=== PATIENT | male | born 1955 | race Caucasian/White ===

== ENCOUNTER 2019-01-02 17:50 | Observation (INO) ==
--- NOTE | 2019-01-02 18:22 | Emergency Department Note ---
Disposition Clinical Impression: Acute renal failure (ARF) Qualifiers: Acute renal failure type: unspecified Qualified Code(s): N17.9 - Acute kidney failure, unspecified Disposition: Admitted As Inpatient Condition: Fair Time of Disposition: 23:06 General Adult HPI - General Chief complaint: ED Dizziness Stated complaint: dizziness Time Seen by Provider: 01/02/19 18:05 Source: patient, EMS Limitations: no limitations Nursing Notes Reviewed: Yes Vital Signs Reviewed: Yes - History of Present Illness HPI Narrative: Presents by EMS and I did see the patient upon arrival and he was working outside in the very hot at a [employer] since 9:30 this morning and became lightheaded and felt like his heart was pounding. No numbness or weakness of the extremities, slurred speech, facial droop or confusion. No syncope. No chest pain or discomfort in the chest. No shortness of breath. He was having some sweating but not a profuse amount. Social history: Smoker, drinks 4 or 5 beers per day. Pain Scale: 0 - Related Data Home Medications Medication Instructions Recorded Confirmed Ibuprofen [Ibu-200] 400 mg PO Q6H PRN 01/02/19 01/02/19 Allergies Allergy/AdvReac Type Severity Reaction Status Date / Time No Known Allergies Allergy Verified 01/02/19 17:57 All systems ED: reviewed and negative except as stated. Past Medical History - Past Medical History Medical history: Reports: no medical history Psychiatric history: Reports: no psych history - Social History Smoking Status: Current every day smoker Smokeless Tobacco Status: No Alcohol use: Reports: occasionally Drug use: Reports: none Physical Exam CONSTITUTIONAL: Alert and oriented X3, well-nourished, well appearing, in no apparent distress HEAD: Normocephalic; atraumatic. EYES: PERRL, no scleral icterus. NOSE: The nose is normal in appearance without rhinorrhea RESP: Normal chest excursion with respiration; breath sounds clear and equal bilaterally; no wheezes, rhonchi, or rales CARD: Regular rhythm, without murmurs, rub or gallop ABD: Non-distended; non-tender, soft,without rigidity, rebound or guarding SKIN: Normal for age and race; warm and dry; no apparent lesions EXTREMITIES: Pulses are 2 plus and equal times 4 extremities, no peripheral edema or calf muscle pain. - General Limitations: no limitations General appearance: alert, in no apparent distress Course Vital Signs Temperature 97.7 F 01/02/19 17:53 Pulse Rate 92 01/02/19 17:53 Respiratory Rate 22 01/02/19 17:53 Blood Pressure 165/105 01/02/19 17:53 O2 Sat by Pulse Oximetry 100 01/02/19 17:53 Temperature 98.0 F 01/02/19 21:19 Pulse Rate 88 01/02/19 21:19 Respiratory Rate 17 01/02/19 21:19 Blood Pressure 178/114 01/02/19 21:19 O2 Sat by Pulse Oximetry 97 01/02/19 21:19 Oxygen Delivery Oxygen Delivery Room Air Medical Decision Making - MDM Narrative Medical decision making narrative: patient will receive 2 L IV flui I do not suspect cardiac disease. I did review an EKG which was done which shows normal sinus rhythm with rate of 94 without acute ischemic change or evidence of arrhythmia. The patient likely had acute effects however he is does not have an elevated temperature at this time and the patient will be watched here. He is bright and alert and nontoxic in appearance. 1822 Patient does have acute renal failure based on his lab results and I did discuss the case with the hospitalist accepts the patient for admission 2305 - Medical Records Medical records reviewed: Yes I reviewed the patient's medical records. - Lab Data Lab results reviewed: Yes I reviewed the patient's lab results. Result diagrams: 01/02/19 18:27 01/02/19 18:27 Lab Results 01/02/19 01/02/19 Range/Units 18:27 18:27 WBC 12.5 H (4.3-11.1) K/mcL RBC 4.84 (4.19-5.50) M/mcL Hgb 16.1 (12.9-16.9) g/dL Hct 46.1 (37.5-50.1) % MCV 95.2 (83.0-100.0) fL MCH 33.3 (28.0-33.3) pg MCHC 34.9 (31.6-35.5) g/dL RDW 13.5 (11.5-14.5) % Plt Count 418 H (140-400) K/mcL MPV 8.6 L (9.4-12.4) fL Sodium 134 L (136-145) mEq/L Potassium 3.6 (3.5-5.1) mEq/L Chloride 98 (98-107) mEq/L Carbon Dioxide 23 (23-29) mEq/L BUN 21 (8-23) mg/dL Creatinine 1.87 H (0.70-1.30) mg/dL Est GFR ( Amer) 45 L (> 60) Est GFR (Non-Af Amer) 37 L (> 60) BUN/Creatinine Ratio 11 (6-26) Glucose 99 (70-105) mg/dL Calculated Osmolality 281 (280-300) Calcium 9.7 (8.6-10.3) mg/dL - Radiology Data Radiology results reviewed: Yes I reviewed the patient's radiology results.
[2019-01-02] MEDS ORDERED: 0.9 % Sodium Chloride 1,000 ML IVC SCH (18:30)
[2019-01-02 18:46] LABS: Hematocrit 46.1 % (37.5-50.1); Hemoglobin 16.1 g/dL (12.9-16.9); Mean Corpuscular HGB Conc 34.9 g/dL (31.6-35.5); Mean Corpuscular Hemoglobin 33.3 pg (28.0-33.3); Mean Corpuscular Volume 95.2 fL (83.0-100.0); Mean Platelet Volume 8.6 fL (9.4-12.4); Platelet Count 418 K/mcL (140-400); Red Blood Count 4.84 M/mcL (4.19-5.50); Red Cell Distribution Width 13.5 % (11.5-14.5); White Blood Count 12.5 K/mcL (4.3-11.1)
[2019-01-02 19:04] LABS: Calcium 9.7 mg/dL (8.6-10.3); Potassium 3.6 mEq/L (3.5-5.1)
[2019-01-02] MEDS ORDERED: Naloxone 0.4 MG/ML INJ IVP PRN (22:11)
[2019-01-02] MEDS: 0.9 % Sodium Chloride 1,000 ML IVC SCH (23:26)
--- NOTE | 2019-01-03 01:12 | Internal Med History&Physical ---
Date of Encounter: 01/02/19 Time of Encounter: 21:55 Internal Medicine - H&P: HPI Chief complaint: near syncope Admitted From: Emergency Dept Plans for Post Hospital Care: Home History of present illness: Mr. Dennis is a 63 year old male who presents to the ER tonight with complaints of feeling lightheaded, dizzy, hot, sweaty, and almost passed out. He was working a [employer] earlier today in the heat and humidity. 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 Some friends and colleagues called EMS, and he was brought to the ER. In the ER, patient was found to have evidence of acute kidney failure and patient was admitted to hospitalist service. Upon my assessment of the patient, he feels much better after having received IV fluids and some food to ingest. He denies any chest pain, palpitations, dyspnea, vomiting, or diarrhea. He admits to having felt lightheaded and dizzy after working in the hot sun and frying fish. He feels that he was dehydrated. He denies any prior cardiac disease, strokes, or kidney problems. Past Med Surg Social Fam HX - Past Medical History Attestation: Yes The following information was validated with the patient. Source: patient, obtained from family Medical history: no medical history Psychiatric history: no psych history - Past Surgical History Surgical History: orthopedic, other Additional surgical history: L shoulder rotator cuff repair, R foot sx - Social History Smoking Status: Current every day smoker Packs per day: half a pack Smokeless Tobacco Status: No Alcohol use: occasionally Drug use: none Current living situation: Home, With Family Activity Level: Independent ambulation Recent Out of Country Travel Within the Last 8 Weeks: No - Family History Mother Living Status: Still Living Hx Family Cardiac Disorders: No Hx Family Genitourinary Disorders: No Father Living Status: Hx Family Cardiac Disorders: Yes Hx Family Genitourinary Disorders: No Internal Medicine - H&P: Meds Ibuprofen [Ibu-200] 400 mg PO Q6H PRN 01/02/19 [History] Allergy/AdvReac Type Severity Reaction Status Date / Time No Known Allergies Allergy Verified 01/02/19 17:57 - Constitutional Constitutional: excessive sweating, no chills, no fever(s), no night sweats - EENT Eyes: no blurry vision, no change in vision Ears: no ear pain, no tinnitus Nose, mouth and throat: no nasal congestion, no sinus pressure, no sore throat - Cardiovascular Cardiovascular ROS IM: lightheadedness, other (+ near syncope), no chest pain, no dyspnea, no dyspnea on exertion, no edema, no palpitations, no paroxysmal nocturnal dyspnea, no syncope - Respiratory Respiratory: no cough, no dyspnea, no hemoptysis, no chest congestion, no excessive phlegm production, no change in phlegm color - Gastrointestinal Gastrointestinal: nausea, no abdominal pain, no diarrhea, no hematemesis, no hematochezia, no melena, no vomiting - Genitourinary Genitourinary ROS male: other (decreased urine output), no dysuria, no flank pain, no hematuria - Musculoskeletal Musculoskeletal ROS IM: no arthralgias, no back pain - Integumentary Integumentary IM: no rash, no jaundice - Neurological Neurological ROS: dizziness, no convulsions, no focal weakness, no frequent falls, no headache(s) - Psychiatric Psychiatric: no anxiety, no depression - Endocrine Endocrine IM: flushing, no polydipsia, no polyphagia, no polyuria - Allergic/Immunologic Allergic/Immunologic: no GI upset with certain foods - Constitutional Vitals: Temp Pulse Resp BP Pulse Ox 97.7 F 72 17 156/84 96 01/03/19 00:28 01/03/19 00:28 01/03/19 00:28 01/03/19 00:01/03/19 00:28 General appearance: Present: cooperative, A&O X 3, pleasant, no acute distress, answers questions appropriately Exam: see below - Head Head exam: Present: atraumatic, normal inspection - Eye Eye exam: Present: EOMI, PERRL. Absent: scleral icterus Pupils: Present: normal accommodation - ENT ENT exam: Present: mucous membranes dry, normal exam, normal oropharynx - Neck Neck exam general surgery: Present: full ROM, supple, trachea midline. Absent: tenderness, nuchal rigidity, thyromegaly - Expanded Neck Exam Neck exam: Absent: carotid bruit - Respiratory Respiratory exam: Present: CTAB. Absent: chest wall tenderness, rales, rhonchi, wheezes, tachypnea - Cardiovascular Cardiovascular exam: Present: RRR, +S1, +S2, tachycardia (HR 100's). Absent: diastolic murmur, systolic murmur - GI/Abdominal GI/Abdominal exam: Present: normal bowel sounds, soft. Absent: guarding, hepatomegaly, mass, rebound, splenomegaly, tenderness - Extremities Exam Extremities exam: Present: full ROM, normal capillary refill, warm, radial pulses palpable and symmetrical. Absent: calf tenderness, joint swelling, pedal edema, tenderness - Back Exam Back exam: Present: normal inspection. Absent: CVA tenderness (L), CVA tenderness (R) - Neurological Exam Neurological exam: Present: alert, CN II-XII intact, oriented X3, no focal deficits, strengths equal and symetr throughout - Psychiatric Psychiatric exam: Present: normal affect, normal mood - Skin Skin exam: Present: dry, intact, warm Internal Med - H&P Results - Labs CBC & Chem 7: 01/02/19 18:27 01/02/19 18:27 Labs: Short CBC 01/02/19 Range/Units 18:27 WBC 12.5 H (4.3-11.1) K/mcL Hgb 16.1 (12.9-16.9) g/dL Hct 46.1 (37.5-50.1) % Plt Count 418 H (140-400) K/mcL BMP 01/02/19 18:27 Sodium 134 L Potassium 3.6 Chloride 98 Carbon Dioxide 23 BUN 21 Creatinine 1.87 H Glucose 99 Calcium 9.7 Cardiac Enzymes 01/02/19 Range/Units 22:25 Troponin I < 0.03 (< 0.04) ng/mL - Assessment and Plan (1) Acute renal failure (ARF) Current Visit: Yes Status: Acute Assessment and plan: 1. Likely due to dehydration and heat exhaustion. 2. Continue IVF hydration and oral hydration. 3. Avoid NSAIDS and nephrotoxic drugs. 4. Monitor renal function. 5. Consult nephrology if fails to improve. Qualifiers: Acute renal failure type: unspecified Qualified Code(s): N17.9 - Acute kidney failure, unspecified (2) Near syncope Current Visit: Yes Status: Acute Assessment and plan: 1. Will trend troponins and EKG's. 2. Likely due to dehydration. 3. ECHO and carotid Dopplers ordered. (3) DVT prophylaxis Current Visit: Yes Status: Acute Assessment and plan: 1. Heparin SQ.
[2019-01-03] MEDS: 0.9 % Sodium Chloride 1,000 ML IVC SCH (04:29)
[2019-01-03] MEDS: *HR* Heparin 5,000 UNIT/ML VIAL SQ SCH ×2 (04:53→17:17)
[2019-01-03 07:21] LABS: Basophils # 0.1 K/mcL (0.0-0.2); Basophils % 1.3 %; Eosinophils # 0.3 K/mcL (0.0-0.6); Hematocrit 41.3 % (37.5-50.1); Immature Granulocytes % 0.3 % (0-4); Lymphocytes # 1.8 K/mcL (0.6-4.6); Lymphocytes % 22.2 %; Mean Corpuscular HGB Conc 34.1 g/dL (31.6-35.5); Mean Corpuscular Hemoglobin 32.9 pg (28.0-33.3); Mean Corpuscular Volume 96.5 fL (83.0-100.0); Mean Platelet Volume 8.9 fL (9.4-12.4); Monocytes # 0.9 K/mcL (0.0-1.3); Monocytes % 11.6 %; Neutrophils # 4.9 K/mcL (1.6-8.9); Platelet Count 347 K/mcL (140-400); Red Blood Count 4.28 M/mcL (4.19-5.50); Red Cell Distribution Width 13.6 % (11.5-14.5); Segmented Neutrophils % 60.6 %
[2019-01-03 07:28] LABS: Hemoglobin 14.1 g/dL (12.9-16.9)
[2019-01-03 07:33] LABS: Activated Partial Thrombo Time 33.2 Seconds (26.0-36.0)
[2019-01-03 07:43] LABS: Alanine Aminotransferase 18 Units/L (7-52); Albumin 3.3 g/dL (3.5-5.7); Albumin/Globulin Ratio 1.3 (1.1-2.2); Alkaline Phosphatase 56 Units/L (34-104); Aspartate Amino Transferase 21 Units/L (13-39); BUN/Creatinine Ratio 22 (6-26); Bilirubin,Total 0.9 mg/dL (0.3-1.0); Blood Urea Nitrogen 20 mg/dL (8-23); Calcium 8.3 mg/dL (8.6-10.3); Carbon Dioxide 23 mEq/L (23-29); Chloride 105 mEq/L (98-107); Globulin 2.6 g/dL (2.4-3.5); Glucose 93 mg/dL (70-105); Osmolality,Calculated 288 (280-300); Potassium 3.6 mEq/L (3.5-5.1); Sodium 138 mEq/L (136-145); Total Protein 5.9 g/dL (6.4-8.9); eGFR For African Americans > 60 (> 60); eGFR For Non-African Americans > 60 (> 60)
[2019-01-03] MEDS: amLODIPine 5 MG TABLET PO SCH (09:51)
[2019-01-03] MEDS: Acetaminophen 325 MG TABLET PO PRN ×2 (15:05→21:47)
--- NOTE | 2019-01-03 15:06 | Internal Med Progress Note ---
Hospitalist Progress Note - Encounter Date of Encounter: 01/03/19 Time of Encounter: 09:01 - Subjective Interval History: Patient seen and examined this morning at bedside. No acute overnight events. Patient denied any fevers chills nausea vomiting or diarrhea. Feeling much better after this IV fluids. Denies any lightheadedness dizziness palpitation chest pain or difficulty breathing. - Exam Vitals: Temp Pulse Resp BP Pulse Ox 98.6 F 84 16 163/95 97 01/03/19 14:28 01/03/19 14:28 01/03/19 14:01/03/19 14:01/03/19 14:28 Exam: General: In no acute distress. Respiratory exam: CTAB. no accessory muscle use, rales, rhonchi, wheezes Cardiovascular exam: RRR, +S1, +S2. no murmur, gallop, rubs. GI/Abdominal exam: Non-tender, Non-distended, normal bowel sounds, soft, no peritoneal signs. Extremities exam: no pedal edema, pulses palpable in b/l lower extremities. no calf tenderness Neurological exam: CN II-XII intact, AO X3, no focal deficits. Skin exam: No skin rash - Assessment and Plan (1) Acute renal failure (ARF) Current Visit: Yes Status: Acute (2) Near syncope Current Visit: Yes Status: Acute (3) DVT prophylaxis Current Visit: Yes Status: Acute - Summary of Assessment and Plan Summary of Assessment and Plan: Assessment Acute MUNA Presyncope HTN Chronic smoker arthritis Plan - MUNA resolved after IVF. Stop IVF. await ECHO and carotid results. trop negative. EKG non-ischemic. symptoms likely from MUNA. If normal ECHO, carotid will discharge patient - Patient with significantly elevated BP. Will start on amlodipine and prn hydralazine IV. Will need scripts on discharge. - Heparin SQ. Internal Medicine: Result - Labs CBC & Chem 7: 01/03/19 06:49 01/03/19 06:49 Labs: Short CBC 01/02/19 01/03/19 Range/Units 18:27 06:49 WBC 12.5 H 8.0 (4.3-11.1) K/mcL Hgb 16.1 14.1 D (12.9-16.9) g/dL Hct 46.1 41.3 (37.5-50.1) % Plt Count 418 H 347 (140-400) K/mcL Neutrophils # 4.9 (1.6-8.9) K/mcL BMP 01/02/19 01/03/19 18:27 06:49 Sodium 134 L 138 Potassium 3.6 3.6 Chloride 98 105 Carbon Dioxide 23 23 BUN 21 20 Creatinine 1.87 H 0.91 Glucose 99 93 Calcium 9.7 8.3 L Cardiac Enzymes 01/02/19 01/03/19 Range/Units 22:25 06:49 Troponin I < 0.03 < 0.03 (< 0.04) ng/mL Liver Function 01/03/19 Range/Units 06:49 Total Bilirubin 0.9 (0.3-1.0) mg/dL AST 21 (13-39) Units/L ALT 18 (7-52) Units/L Alkaline Phosphatase 56 (34-104) Units/L Albumin 3.3 L (3.5-5.7) g/dL - ABG Interpretation ABG results: PT/INR, D-dimer PT 11.0 Seconds (9.4-12.1) 01/03/19 06:49 Consult Discharge Plan - Plan Referrals: Niranjan Hurt MD [Primary Care Provider] - _ (1) Acute renal failure (ARF) Qualifiers: Acute renal failure type: unspecified Qualified Code(s): N17.9 - Acute kidney failure, unspecified
[2019-01-04] MEDS: *HR* Heparin 5,000 UNIT/ML VIAL SQ SCH (05:44)
[2019-01-04 07:16] VITALS: BP 163/95
--- NOTE | 2019-01-04 09:24 | Discharge Summary ---
- NOTES TO OUTPATIENT PROVIDER Notes to Outpatient Provider: Patient started on amlodipine for better blood pressure control. He needs to follow-up monitor blood pressure and adjust medications if needed. Orders not resulted at time of discharge: Pending orders 01/02/19 18:56 ECG 12 lead ECG [ECG] Stat 01/03/19 06:00 ECG 12 lead ECG [ECG] AM 0600 Date of Encounter: 01/04/19 Time of Encounter: 09:22 - Discharge Diagnosis (1) Acute renal failure (ARF) Priority: Primary Status: Acute Qualifiers: Acute renal failure type: unspecified Qualified Code(s): N17.9 - Acute kidney failure, unspecified (2) Near syncope Priority: Primary Status: Acute (3) DVT prophylaxis Priority: Secondary Status: Acute (4) Tobacco abuse Priority: Secondary Status: Acute Hospital course: Mr. Dennis is a 63 year old male with no significant past medical history came in with complain of lightheadedness and dizziness after working in outside environment in heat and humidity for a while. Patient was found to have acute kidney injury and was started on IV fluids. Patient takes ibuprofen as needed for pain at home which was started. Renal function improved with IV fluids which was later stopped. Patient did have significantly elevated blood pressure for which amlodipine was started. He had workup with echocardiogram and carotids for Near syncopal episode. Echocardiogram showed EF of 60%, mild diastolic dysfunction, mild concentric LVH. Carotids Doppler was without stenotic plaques. Patient blood pressure now better controlled. We will discharge patient to home to follow-up with PCP for blood pressure monitoring. We will prescribe amlodipine on discharge. counelled on smoking cessation Discharge discussed with: patient, nurse - Time Spent with Patient Total time spent providing and/or coordinating discharge services: Time spent: Greater than 30 minutes (35) - Discharge Medications Prescriptions: New amLODIPine [Norvasc] 5 mg PO DAILY 30 Days #30 tablet Discontinued Ibuprofen [Ibu-200] 400 mg PO Q6H PRN PRN Reason: Pain Home Medications: amLODIPine [Norvasc] 5 mg PO DAILY 30 Days #30 tablet 01/04/19 [Rx] Allergies/Adverse Reactions: Allergy/AdvReac Type Severity Reaction Status Date / Time No Known Allergies Allergy Verified 01/02/19 17:57 Date of admission: 06/28/19 20:27 Primary care physician: Niranjan Hurt MD Discharging clinician: Bk Alatorre - Constitutional Vitals: Temp Pulse Resp BP Pulse Ox 98.8 F 66 16 163/95 98 01/04/19 07:15 01/04/19 07:15 01/04/19 07:15 01/04/19 07:15 01/04/19 07:15 Exam: General: In no acute distress. Respiratory exam: CTAB. no accessory muscle use Cardiovascular exam: RRR, +S1, +S2. no murmur, gallop, rubs. GI/Abdominal exam: Non-tender, soft, Extremities exam: no pedal edema, pulses palpable in b/l lower extremities. Neurological exam: CN II-XII intact, AO X3, no focal deficits. - Patient Status Disposition: Home, Self-Care Condition: Fair - Discharge Instructions Follow Up With: Niranjan Hurt MD [Primary Care Provider] - - Diet and Activity Activity: increase activity as tolerated
[2019-01-04] MEDS: amLODIPine 5 MG TABLET PO SCH (09:57)
--- NOTE | 2019-01-06 09:46 | Electrocardiograph Report ---
[facility] [employer] Test Date: 2019-01-02 Pat Name: Kwan Dennis Department: EXAM2 Room: 2A38 Gender: M Email Marketing Coordinator: : [id number] Requested By: Carlin Hannon Order Number: [id number] Reading MD: Sonny Lombardo Measurements Intervals [place] Rate: 94 P: 52 MI: 158 QRS: 29 QRSD: 106 T: 67 QT: 376 QTc: 471 Interpretive Statements Sinus rhythm Minimal ST depression, lateral leads Minimal ST elevation, anterior leads, consider ischemia, correlate clinically Electronically Signed On 01-06-2019 9:44:11 EDT by Sonny Lombardo
== END 2019-01-04 10:30 | disposition home or self-care (01) ==
LOC: EMEROOARM 17:50 → 2ANU 17:50 → SUATTDRO 20:27 → 2ANU 21:03
PROVIDERS: ADMIT Pediatrics; ATTEND Internal Medicine